=== PATIENT | female | born 1985 | race African-American/Black ===

== ENCOUNTER 2019-06-03 16:19 | Inpatient (IN) ==
[2019-06-03] MEDS ORDERED: DINOPROSTONE VAG GEL 10 MG SYRINGE VAG ONE ×2 (16:45→17:03)
[2019-06-03] MEDS ORDERED: BUTORPHANOL 1 MG/ML VIAL IV PRN (16:59)
[2019-06-03] MEDS ORDERED: BUTORPHANOL 2 MG/ML VIAL IV PRN (16:59)
[2019-06-03] MEDS ORDERED: ONDANSETRON 4 MG/2 ML VIAL IV PRN (16:59)
[2019-06-03] MEDS ORDERED: MEPERIDINE 50 MG/1 ML VIAL IV PRN (16:59)
[2019-06-03 17:32] LABS: Basophils % 0.2 % (0.0-0.8); Eosinophils # 0.1 10*3/uL (0.0-0.87); Hematocrit 36.9 VOL% (35.7-47.0); Hemoglobin 11.5 GM/DL (12.0-16.0); Immature Granulocytes % 0.7 %; Immature Granulocytes Absolute 0.04 #; Lymphocytes % 16.1 % (21.3-54.2); Mean Corpuscular HGB Conc 31.2 GM/DL (32-36); Mean Corpuscular Volume 82.6 FL (87-102); Mean Platelet Volume 10.7 FL (9.6-12.0); Monocytes % 10.4 % (1.7-12.7); Neutrophils % 71.6 % (38.7-73.9); Platelet Count 260 T/CUMM (130-400); Red Blood Count 4.47 MC/CUMM (3.8-5.5); Red Cell Distribution Width 13.9 % (9.3-17.3); White Blood Count 5.9 T/CUMM (4-12)
[2019-06-03 17:46] LABS: Albumin 2.4 G/DL (3.4-5.0); Bilirubin,Total 0.5 MG/DL (0.2-1.0); Osmolality,Calculated 270.8 MOS/KG (273-304); Total Protein 7.2 G/DL (6.4-8.3)
[2019-06-03 22:55] LABS: INR 0.9; Partial Thromboplastin Time 33.2 SECS (23.9-33.8)
[2019-06-04] MEDS ORDERED: OXYTOCIN/LR 20 UNIT/1,000 ML BAG IV SCH ×2 (02:00→03:00)
[2019-06-04] MEDS: LACTATED RINGERS 1,000 ML IV PRN ×2 (02:34→07:11)
[2019-06-04] MEDS ORDERED: FAMOTIDINE 20 MG/2 ML VIAL IV ONE (05:15)
[2019-06-04] MEDS ORDERED: CITRIC ACID/SODIUM CITRATE 30 ML UDCUP PO ONE (05:15)
[2019-06-04] MEDS ORDERED: ONDANSETRON 4 MG/2 ML VIAL IV ONE (05:15)
[2019-06-04] MEDS ORDERED: NALOXONE 0.4 MG/ML VIAL IV PRN (05:15)
[2019-06-04] MEDS ORDERED: PROMETHAZINE 25 MG/1 ML VIAL IM ONE (05:15)
[2019-06-04] MEDS ORDERED: diphenhydrAMINE 50 MG/1 ML VIAL IV PRN ×2 (05:15)
[2019-06-04] MEDS ORDERED: hydrOXYzine HCL 25 MG/1 ML VIAL IM PRN (05:15)
[2019-06-04] MEDS ORDERED: ePHEDrine 50 MG/ML AMP IV PRN (05:15)
[2019-06-04] MEDS ORDERED: LACTATED RINGERS 1,000 ML IV ONE (05:15)
[2019-06-04] MEDS ORDERED: CITRIC ACID/SODIUM CITRATE 30 ML UDCUP ONE (05:17)
[2019-06-04] MEDS ORDERED: fentaNYL 2 MCG/ROPIV 0.2% EPID 100 ML EPIDURAL SCH (05:30)
[2019-06-04 08:40] LABS: Apearance,Urine CLEAR (Clear); Bilirubin,Urine Negative (Negative); Blood, Urine Negative (Negative); Glucose,Urine (UA) Negative (Negative); Ketones,Urine 5 mg/dL (Negative); Mucus,Urine Few /LPF (Occasional); Nitrite,Urine Negative (Negative); Protein,Urine Negative; RBC,Urine 5 /HPF (0-4); Squamous Epithelial Cell,Urine Occasional /HPF (0-10); Urine Color Yellow (Yellow); Urine Specific Gravity 1.026 (1.001-1.035); WBC,Urine 1 /HPF (0-6)
[2019-06-04] MEDS ORDERED: miSOPROStoL 200 MCG TABLET ONE (12:59)
[2019-06-04] MEDS ORDERED: LIDOCAINE 1% 50 ML VIAL ONE (13:00)
[2019-06-04] MEDS ORDERED: METHYLERGONOVINE 0.2 MG/1 ML AMP ONE (13:00)
[2019-06-04] MEDS ORDERED: CARBOPROST TROMETHAMINE 250 MCG/ML AMP IM ONE (13:00)
[2019-06-04 13:41] LABS: Cord Venous Blood HCO3 24.2 MMOL/L; Cord Venous Blood PCO2 32.5 MMHG; Cord Venous Blood PO2 40.4
[2019-06-04] MEDS ORDERED: hydrALAZINE 20 MG/1 ML VIAL IV ONE (14:18)
[2019-06-04] MEDS ORDERED: OXYTOCIN/LR 20 UNIT/1,000 ML BAG IV ONE ×2 (16:39→17:09)
[2019-06-04] MEDS ORDERED: DIPH/TET/ACEL PERT BOOSTER VACCINE 0.5 ML VIAL IM ONE (17:09)
[2019-06-04] MEDS ORDERED: LANOLIN 50% CREAM 0.3 OZ TUBE TOP PRN (17:09)
[2019-06-04] MEDS ORDERED: BENZOCAINE 20%/MENTHOL 0.5% SPRAY 56 GM CAN TOP PRN (17:09)
[2019-06-04] MEDS ORDERED: WITCH HAZEL PADS 100/JAR TOP PRN (17:09)
[2019-06-04] MEDS ORDERED: BISACODYL 10 MG SUPP RECTAL PRN (17:09)
[2019-06-04] MEDS ORDERED: MEASLES/MUMPS/RUBELLA VACCINE 0.5 ML VIAL SUBCUT ONE (17:09)
[2019-06-04] MEDS ORDERED: RHO(D) IMMUNE GLOBULIN 300 MCG SYRINGE IM ONE (17:09)
[2019-06-04] MEDS ORDERED: IBUPROFEN 800 MG TABLET PO PRN (17:09)
[2019-06-04] MEDS ORDERED: HYDROCORTISONE 2.5% RECTAL CREAM 30 GM TUBE TOP PRN (17:09)
[2019-06-04] MEDS ORDERED: ACETAMINOPHEN 325 MG TABLET PO PRN (17:09)
[2019-06-04] MEDS ORDERED: oxyCODONE/ACETAMINOPHEN 5-325 MG TABLET PO PRN ×2 (17:09)
[2019-06-04] MEDS: DOCUSATE SODIUM 100 MG CAPSULE PO SCH (21:15)
[2019-06-05 07:22] LABS: Basophils % 0.1 % (0.0-0.8); Eosinophils # 0.1 10*3/uL (0.0-0.87); Eosinophils % 0.5 % (0.00-10.9); Hematocrit 33.4 VOL% (35.7-47.0); Hemoglobin 10.5 GM/DL (12.0-16.0); Immature Granulocytes % 0.5 %; Immature Granulocytes Absolute 0.05 #; Lymphocytes # 1.4 10*3/uL (1.4-4.0); Lymphocytes % 12.6 % (21.3-54.2); Mean Corpuscular HGB Conc 31.4 GM/DL (32-36); Mean Corpuscular Volume 82.3 FL (87-102); Mean Platelet Volume 10.8 FL (9.6-12.0); Monocytes % 7.7 % (1.7-12.7); Neutrophils % 78.6 % (38.7-73.9); Platelet Count 223 T/CUMM (130-400); Red Blood Count 4.06 MC/CUMM (3.8-5.5); Red Cell Distribution Width 13.9 % (9.3-17.3)
[2019-06-05] MEDS: DOCUSATE SODIUM 100 MG CAPSULE PO SCH ×2 (08:35→21:07)
[2019-06-06 07:16] VITALS: BP 126/73
[2019-06-06] MEDS: DOCUSATE SODIUM 100 MG CAPSULE PO SCH (09:16)
== END 2019-06-06 11:40 | disposition home or self-care (01) | DRG 560 ==
LOC: N.LDOUT 16:19 → N.LD 16:21 → N.OB 06-04 17:03
PROVIDERS: ADMIT Obstetrics & Gynecology; ATTEND Obstetrics & Gynecology

== ENCOUNTER 2022-01-27 05:27 | Inpatient (IN) ==
[2022-01-27] MEDS ORDERED: METHYLERGONOVINE 0.2 MG/1 ML AMP IM PRN (05:34)
[2022-01-27] MEDS ORDERED: BUTORPHANOL 2 MG/ML VIAL IV PRN (05:34)
[2022-01-27] MEDS ORDERED: CARBOPROST TROMETHAMINE 250 MCG/ML AMP IM PRN (05:34)
[2022-01-27] MEDS ORDERED: TRANEXAMIC ACID 1,000 MG in SODIUM CHLORIDE 0.9% 100 ML IV PRN (05:34)
[2022-01-27] MEDS ORDERED: ONDANSETRON 4 MG/2 ML VIAL IV PRN (05:34)
[2022-01-27] MEDS ORDERED: miSOPROStoL 200 MCG TABLET RECTAL PRN (05:34)
[2022-01-27] MEDS ORDERED: MEPERIDINE 25 MG/1 ML VIAL IV PRN ×2 (05:39→10:01)
[2022-01-27] MEDS ORDERED: OXYTOCIN/LR 30 UNIT/1,000 ML BAG IV PRN (05:55)
[2022-01-27 06:13] LABS: Basophils % 0.1 % (0.0-0.8); Eosinophils # 0.1 10*3/uL (0.0-0.87); Eosinophils % 0.8 % (0.00-10.9); Hematocrit 33.8 VOL% (35.7-47.0); Hemoglobin 10.6 GM/DL (12.0-16.0); Immature Granulocytes % 1.9 %; Immature Granulocytes Absolute 0.14 #; Lymphocytes % 13.6 % (21.3-54.2); Mean Corpuscular HGB Conc 31.4 GM/DL (32-36); Mean Corpuscular Volume 82.4 FL (87-102); Mean Platelet Volume 9.7 FL (9.6-12.0); Monocytes # 0.6 10*3/uL (0.11-0.8); Monocytes % 7.6 % (1.7-12.7); Platelet Count 260 T/CUMM (130-400); Red Cell Distribution Width 14.4 % (9.3-17.3); White Blood Count 7.2 T/CUMM (4-12)
[2022-01-27 06:40] LABS: Albumin 2.6 G/DL (3.4-5.0); Bilirubin,Total 0.4 MG/DL (0.20-1.00); Calcium 8.9 MG/DL (8.5-10.1); Osmolality,Calculated 272.7 MOS/KG (273-304); Potassium 3.9 MMOL/L (3.5-5.1); Total Protein 6.9 G/DL (6.4-8.2)
[2022-01-27] MEDS ORDERED: NIFEdipine 10 MG CAPSULE PO ONE (08:02)
[2022-01-27] MEDS: LACTATED RINGERS 1,000 ML IV SCH ×2 (10:03→13:04)
[2022-01-27] MEDS ORDERED: diphenhydrAMINE 50 MG/1 ML VIAL IV PRN ×2 (10:14)
[2022-01-27] MEDS ORDERED: FAMOTIDINE 20 MG/2 ML VIAL IV ONE (10:14)
[2022-01-27] MEDS ORDERED: NALOXONE 0.4 MG/ML VIAL IV PRN (10:14)
[2022-01-27] MEDS ORDERED: CITRIC ACID/SODIUM CITRATE 30 ML UDCUP PO ONE (10:14)
[2022-01-27] MEDS ORDERED: ePHEDrine 50 MG/ML VIAL IV PRN (10:14)
[2022-01-27] MEDS ORDERED: PROMETHAZINE 25 MG/1 ML VIAL IM ONE (10:14)
[2022-01-27] MEDS ORDERED: hydrOXYzine HCL 25 MG/1 ML VIAL IM PRN (10:14)
[2022-01-27] MEDS ORDERED: LACTATED RINGERS 1,000 ML IV ONE (10:14)
[2022-01-27] MEDS ORDERED: fentaNYL 2 MCG/ROPIV 0.2% EPID 100 ML EPIDURAL SCH (10:30)
[2022-01-27] MEDS ORDERED: OXYTOCIN/LR 20 UNIT/1,000 ML BAG IV SCH (10:30)
[2022-01-27 14:23] LABS: Mucus,Urine Occasional /LPF (Occasional); RBC,Urine 1 /HPF (0-4)
[2022-01-27 14:24] LABS: Bilirubin,Urine Negative (Negative); Blood, Urine Negative (Negative); Glucose,Urine (UA) Negative (Negative); Ketones,Urine 80 mg/dL (Negative); Nitrite,Urine Negative (Negative); Protein,Urine Negative (Negative); Urine Appearance Clear (Clear); Urine Color Yellow (Yellow); Urine Urobilinogen 0.2 eU/dL (<2.0); Urine pH 7.5 (4.5-8.0)
[2022-01-27] MEDS ORDERED: miSOPROStoL 200 MCG TABLET ONE (14:54)
[2022-01-27] MEDS ORDERED: METHYLERGONOVINE 0.2 MG/1 ML AMP ONE (14:54)
[2022-01-27] MEDS ORDERED: CARBOPROST TROMETHAMINE 250 MCG/ML AMP IM ONE (14:54)
[2022-01-27 15:55] LABS: Cord Venous Blood HCO3 22.5 MMOL/L; Cord Venous Blood PCO2 41.8 MMHG; Cord Venous Blood PO2 42.9
[2022-01-27] MEDS ORDERED: BENZOCAINE 20%/MENTHOL 0.5% SPRAY 56 GM CAN TOP PRN (18:07)
[2022-01-27] MEDS ORDERED: DIPH/TET/ACEL PERT BOOSTER VACCINE 0.5 ML VIAL IM ONE (18:07)
[2022-01-27] MEDS ORDERED: WITCH HAZEL PADS 100/JAR TOP PRN (18:07)
[2022-01-27] MEDS ORDERED: IBUPROFEN 800 MG TABLET PO PRN (18:07)
[2022-01-27] MEDS ORDERED: oxyCODONE/ACETAMINOPHEN 5-325 MG TABLET PO PRN ×2 (18:07)
[2022-01-27] MEDS ORDERED: HYDROCORTISONE 2.5% RECTAL CREAM 30 GM TUBE TOP PRN (18:07)
[2022-01-27] MEDS ORDERED: ACETAMINOPHEN 325 MG TABLET PO PRN (18:07)
[2022-01-27] MEDS ORDERED: OXYTOCIN/LR 20 UNIT/1,000 ML BAG IV ONE (18:07)
[2022-01-27] MEDS ORDERED: MEASLES/MUMPS/RUBELLA VACCINE 0.5 ML VIAL SUBCUT ONE (18:07)
[2022-01-27] MEDS ORDERED: LANOLIN 50% CREAM 0.3 OZ TUBE TOP PRN (18:07)
[2022-01-27] MEDS ORDERED: BISACODYL 10 MG SUPP RECTAL PRN (18:07)
[2022-01-27] MEDS ORDERED: RHO(D) IMMUNE GLOBULIN 300 MCG SYRINGE IM ONE (18:07)
[2022-01-27] MEDS: DOCUSATE SODIUM 100 MG CAPSULE PO SCH (20:48)
[2022-01-28 06:14] LABS: Basophils % 0.1 % (0.0-0.8); Eosinophils # 0.1 10*3/uL (0.0-0.87); Eosinophils % 0.5 % (0.00-10.9); Hematocrit 32.3 VOL% (35.7-47.0); Hemoglobin 10.1 GM/DL (12.0-16.0); Immature Granulocytes % 0.5 %; Immature Granulocytes Absolute 0.05 #; Lymphocytes # 1.2 10*3/uL (1.4-4.0); Lymphocytes % 11.1 % (21.3-54.2); Mean Corpuscular HGB Conc 31.3 GM/DL (32-36); Mean Corpuscular Volume 83.9 FL (87-102); Monocytes # 0.8 10*3/uL (0.11-0.8); Monocytes % 7.7 % (1.7-12.7); Neutrophils % 80.1 % (38.7-73.9); Platelet Count 253 T/CUMM (130-400); Red Blood Count 3.85 MC/CUMM (3.8-5.5); Red Cell Distribution Width 14.5 % (9.3-17.3); White Blood Count 10.7 T/CUMM (4-12)
[2022-01-28] MEDS: DOCUSATE SODIUM 100 MG CAPSULE PO SCH ×2 (08:13→21:23)
[2022-01-29 08:39] VITALS: BP 140/88
[2022-01-29] MEDS: DOCUSATE SODIUM 100 MG CAPSULE PO SCH (08:41)
== END 2022-01-29 13:00 | disposition home or self-care (01) | DRG 560 ==
LOC: N.LD 05:27 → N.OB 18:00
PROVIDERS: ADMIT Obstetrics & Gynecology; ATTEND Obstetrics & Gynecology